=== PATIENT | male | born 1970 | race Caucasian/White ===

== ENCOUNTER 2019-10-24 13:03 | Observation (INO) ==
[2019-10-24] MEDS ORDERED: ASPIRIN 81 MG TAB.CHEW PO ONE (13:16)
[2019-10-24] MEDS: NITROGLYCERIN 0.4 MG/TAB BTL SL PRN ×2 (13:21→13:32)
[2019-10-24 13:31] LABS: Hemoglobin 16.9 gm/dL (13.5-18.0); Mean Cell Volume 91.4 fl (78-100); Mean Corpuscular Hemoglobin 31.5 pg (27-31); Mean Corpuscular Hgb Conc 34.5 g/dl (32-36); Mean Platelet Volume 9.3 fl (8-11.3); Neutrophil % 68.1 % (42-75.0); Platelet Count 255 K/mm3 (150-450); Red Blood Count 5.36 M/mm3 (4.7-6.0); Red Cell Distribution Width 11.9 % (11.5-14.0); White Blood Count 7.4 K/mm3 (4.0-10.5)
[2019-10-24 13:43] LABS: Prothrombin Time (Patient) 10.8 Seconds (9.1-10.7)
[2019-10-24 13:46] LABS: INR 1.09 INR (0.92-1.08); Partial Thrombolplastin Time 25.6 Seconds (24-32)
[2019-10-24 13:51] LABS: ALT 18 U/L (19-67); AST 17 U/L (0-48); Albumin * 4.2 gm/dl (3.4-5.0); Alkaline Phosphatase * 51 U/L (50-170); Anion Gap 16.2 mmol/L (6.8-13.8); BUN/Creatinine Ratio 15.5 (9.0-21.6); Bilirubin, Total 0.5 mg/dL (0.0-1.1); Blood Urea Nitrogen 16 mg/dL (6-23); Ca. Corrected For Albumin 8.3 mg/dL (8.4-10.2); Calcium * 8.8 mg/dL (7.9-10.9); Carbon Dioxide 24.4 mmol/L (24-32.6); Chloride 102 mmol/L (97-106); Glucose * 112 mg/dL (70-110); Potassium 3.6 mmol/L (3.4-4.6); Sodium 139 mmol/L (132-142); Total Protein 7.8 gm/dL (6.2-8.2); Troponin I Less than 0.017 ng/mL (0.00-0.10)
[2019-10-24 14:17] LABS: TSH * 2.889 uIU/mL (0.358-3.74)
[2019-10-24] MEDS ORDERED: NITROGLYCERIN 1 INCH PACKET TD ONE (15:22)
--- NOTE | 2019-10-24 15:44 | ERNOTE ---
Chest Pain/Cardiac HPI Date of Service: 10/24/19 Chief Complaint: Chest Pain Time Seen by Provider: 10/24/19 13:43 Source: patient Exam Limitations: no limitations Immunizations: IMMUNIZATION HX History of Influenza Vaccine Yes Allergies/Adverse Reactions: Allergies No Known Allergies Allergy (Verified 10/24/19 15:40) Home Medications: HOME MEDICATIONS NK 10/24/19 [Last Taken Unknown] Narrative: patient presents to the with chest discomfort and HTN. Was seen at another ER and brought here for ongoing Sx. Here NTG given with relief or Sx. No abdominal pain. Some exertional CP Sx over last few days. No pleuritic pain or acute SOB. No fever or other acute illnesses reported. No calf pain or leg swelling. Timing: gone now Severity/Quality: moderate Location: central Chest Pain Radiation: no radiation Modifying Factors - Improves: Present: nitroglycerin Modifying Factors - Worsens: Present: nothing Nitro Today/Relief: 0.4 mg x 1 Aspirin Treatment Today: provided by ED Associated Symptoms: Absent: headache, diaphoresis, abdominal pain, back pain Prior Chest Pain/Cardiac Workup: Reports: other - stress test 20 years ago Prior Treatment: Denies: recently hospitalized, currently on antibiotics Review of Systems - Review of Systems Constitutional: Absent: fever ENT: Absent: sore throat Respiratory: Present: See HPI Cardiology: Present: See HPI Gastrointestinal/Abdominal: Absent: abdominal pain Genitourinary: Absent: dysuria All Other Systems: All systems neg except as marked Medical History (Last Reviewed 10/24/19 @ 15:43 by Omid Cole MD) Hyperlipidemia (Chronic) Onset Date: Unknown Ankle pain Onset Date: Unknown Anxiety Onset Date: Unknown Club foot Onset Date: Unknown Depression Onset Date: Unknown Surgical History: Surgical History (Last Reviewed 10/24/19 @ 15:43 by Omid Cole MD) History of tonsillectomy Onset Date: ~1985 Family History: Family History (Last Reviewed 10/24/19 @ 15:43 by Omid Cole MD) Mother Alive and well Father Diabetes Brother Alive and well Social History: (Last Reviewed 10/24/19 @ 15:43 by Omid Cole MD) Social History: Marital status: household members: spouse current occupational status: employed 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 Highest education level completed: high school graduate Service: No Tobacco: Smoking Status: Never smoker Alcohol: alcohol intake: current Substance Use: substance use type: does not use Dietary Habits: caffeine: Yes Physical Exam - Physical Exam General Appearance: Present: alert, no apparent distress Head Exam: Present: normal inspection, no evidence of injury Eye Exam: Normal inspection: bilateral, PERRL: bilateral Ears, Nose, Throat: Present: normal ENT inspection Neck: Present: normal inspection Respiratory: Present: no respiratory distress, normal breath sounds, no accessory muscle use, lungs clear Cardiovascular/Chest: Present: regular rate, rhythm, normal peripheral pulses Gastrointestinal/Abdominal: Present: normal bowel sounds, nontender, nondistended, soft Back Exam: Absent: CVA tenderness (R), CVA tenderness (L) Extremity Exam: Present: normal inspection, normal range of motion Neurological Exam: Present: alert, no motor/sensory deficits Skin Exam: Present: normal color, warm/dry Progress - Results and Orders Patient's Lab Results:: I have reviewed the patient's lab results. - Vital Signs Patient's Vital Signs:: I have reviewed the patient's vital signs. Vital Signs: Vital Signs 10/24/19 13:11 10/24/19 13:23 10/24/19 13:33 Temperature 36.4 C Pulse Rate 70 94 72 Respiratory Rate 16 14 Blood Pressure 154/98 H 128/86 O2 Sat by Pulse Oximetry 94 96 10/24/19 13:45 10/24/19 14:15 10/24/19 14:45 Temperature Pulse Rate 83 72 69 Respiratory Rate 21 H 13 14 Blood Pressure 125/85 137/90 H 140/98 H O2 Sat by Pulse Oximetry 94 97 97 10/24/19 15:15 Temperature Pulse Rate 67 Respiratory Rate 26 H Blood Pressure 150/90 H O2 Sat by Pulse Oximetry 96 - EKG EKG #1 EKG: NSR EKG read: Interp. by me EKG Comments: NSR rate 74. Non-specific ST/T wave changes, no STEMI noted. - X-Ray X-Ray #1 X-Ray: chest Interpretation: Interp. by me X-ray Comments: I reviewed official radiology report - Progress/Reassessment Chief Complaint: Chest Pain Progress Note-Subjective: 10/24/19 15:39 Patient had resolution of CP with NTG. Atypical pain but I feel he needs repeat trop and NTG past provided. Will admit obs for cardiac monitoring and rule out. Stress test tomorrow. Patient and family agreeable. HTN treated with NTG Departure Clinical Impression: Chest pain, Hypertension - Departure Disposition: Still a patient Condition: Stable Referrals: Mohan Bond MD [Staff Physician] - Ambulatory Orders: NUC Pharmacological Stress Time Frame: 1 Day, Facility: [facility], Location: Radiology
[2019-10-24] MEDS ORDERED: ACETAMINOPHEN 500 MG TABLET PO PRN (18:49)
[2019-10-24] MEDS: traMADol HCL 50 MG TABLET PO PRN (20:00)
[2019-10-25] MEDS: traMADol HCL 50 MG TABLET PO PRN (07:29)
--- NOTE | 2019-10-25 08:31 | HP ---
Chief Complaint - Chief Complaint Date of Service: 10/25/19 Time of Service: 08:30 Chief Complaint: chest pain History of Present Illness: Fairly healthy 48-year-old male brought into the ER after developing chest pain secondary to elevated blood pressures. Originally seen in [facility] but was unable to get treatment in a timely manner and so was brought to for medicine. EKG here showed slight right bundle branch block but otherwise fairly benign. Initial pressures were 160s over 100s. Pain resolved with nitroglycerin, patient was given aspirin. Blood pressure also improved with nitroglycerin. Initial troponin was negative. Other lab work was negative as well including negative lipase, normal TSH, negative d-dimer. Due to pain being relieved with nitro, patient was placed under observation and brought in to rule out acute coronary syndrome/MD. Second troponin also came back negative. Stress test scheduled for later today. Currently patient is resting comfortably in his bed with his chest pain resolved, blood pressure much better controlled overnight, no questions or concerns. Medical History (Last Reviewed 10/24/19 @ 15:43 by Omid Cole MD) Hyperlipidemia (Chronic) Onset Date: Unknown Ankle pain Onset Date: Unknown Anxiety Onset Date: Unknown Club foot Onset Date: Unknown Depression Onset Date: Unknown Surgical History: Surgical History (Last Reviewed 10/24/19 @ 15:43 by Omid Cole MD) History of tonsillectomy Onset Date: ~1985 Family History: Family History (Last Reviewed 10/24/19 @ 15:43 by Omid Cole MD) Mother Alive and well Father Diabetes Brother Alive and well Social History: (Last Reviewed 10/24/19 @ 15:43 by Omid Cole MD) Social History: Marital status: household members: spouse current occupational status: employed 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 Absent: Edema, Palpitations Abdominal: Present: Nausea. Absent: Vomiting Genitourinary: Present: No Symptoms Reported Musculoskeletal: Present: No Symptoms Reported Neurological: Present: No Symptoms Reported Skin: Present: No Symptoms Reported Endocrine: Present: No Symptoms Reported Immunizations: IMMUNIZATION HX History of Influenza Vaccine Yes Allergies/Adverse Reactions: Allergies Allergy/AdvReac Type Severity Reaction Status Date / Time No Known Allergies Allergy Verified 10/24/19 15:40 Home Medications: HOME MEDICATIONS NK 10/24/19 [Last Taken Unknown] Exam - Exam Vital Signs: Vital Signs - Last Taken Temp 36.6 C 10/25/19 07:14 Pulse 77 10/25/19 07:14 Resp 18 10/25/19 07:14 BP 128/76 10/25/19 07:14 Pulse Ox 94 10/25/19 07:14 Constitutional: Present: Alert, Oriented x3, Cooperative, Well developed ENT Exam: Present: hearing grossly normal. Absent: nasal congestion, nasal drainage Eye Exam: bilateral eye: normal inspection, EOMI Neck: Present: non-tender, supple. Absent: thyromegaly Respiratory: Present: lungs clear, normal breath sounds, no respiratory distress Cardiovascular/Chest: Present: normal peripheral pulses, regular rate, rhythm, no murmur. Absent: edema Peripheral Pulses: carotid (R): 2+, carotid (L): 2+, dorsalis-pedis (R): 2+, dorsalis-pedis (L): 2+ Abdomen: Present: Normal bowel sounds, soft, nontender, nondistended /Rectal: Present: Exam deferred Skin Exam: Present: normal color, warm/dry Appearance: Present: appropriate appearance, appropriate insight Eye contact: Present: cooperative, good eye contact Thoughts: Present: normal thought pattern, normal mood /affect Diagnostic Studies: Abnormal Lab Results 10/24/19 10/24/19 10/24/19 Range/Units 13:25 13:25 13:25 MCH 31.5 H (27-31) pg PT 10.8 H (9.1-10.7) Seconds INR (Anticoag Therapy) 1.09 H (0.92-1.08) INR Anion Gap 16.2 H (6.8-13.8) mmol/L Random Glucose 112 H (70-110) mg/dL Calcium Adj for Albumin 8.3 L (8.4-10.2) mg/dL ALT 18 L (19-67) U/L Laboratory Results WBC 7.4 K/mm3 (4.0-10.5) 10/24/19 13:25 RBC 5.36 M/mm3 (4.7-6.0) 10/24/19 13:25 Hgb 16.9 gm/dL (13.5-18.0) 10/24/19 13:25 Hct 49.0 % (42.0-52.0) 10/24/19 13:25 MCV 91.4 fl (78-100) 10/24/19 13:25 MCH 31.5 pg (27-31) H 10/24/19 13:25 MCHC 34.5 g/dl (32-36) 10/24/19 13:25 RDW 11.9 % (11.5-14.0) 10/24/19 13:25 Plt Count 255 K/mm3 (150-450) 10/24/19 13:25 MPV 9.3 fl (8-11.3) 10/24/19 13:25 Immature Gran % (Auto) 0.10 % (0.001-0.429) 10/24/19 13:25 Immature Gran # (Auto) 0.01 K/mm3 (0.000-0.0310) 10/24/19 13:25 Neutrophils % 68.1 % (42-75.0) 10/24/19 13:25 Lymphocytes % 21.7 % (20-51) 10/24/19 13:25 Monocytes % 7.9 % (0.0-9) 10/24/19 13:25 Eosinophils % 1.4 % (0.0-3.0) 10/24/19 13:25 Basophils % 0.8 % (0.0-1.0) 10/24/19 13:25 Nucleated RBC % 0.0 k/mm3 (0-1) 10/24/19 13:25 Neutrophils # 5.0 K/mm3 (1.3-6.0) 10/24/19 13:25 Lymphocytes # 1.60 k/mm3 (1.5-3.5) 10/24/19 13:25 Monocytes # 0.6 k/mm3 (0.0-1.0) 10/24/19 13:25 Eosinophils # 0.1 k/mm3 (0.0-0.7) 10/24/19 13:25 Absolute Basophils 0.1 k/mm3 (0.0-0.1) 10/24/19 13:25 PT 10.8 Seconds (9.1-10.7) H 10/24/19 13:25 INR (Anticoag Therapy) 1.09 INR (0.92-1.08) H 10/24/19 13:25 PTT ([place]) 25.6 Seconds (24-32) 10/24/19 13:25 D-Dimer 0.21 ug/mL (0.19-0.49) 10/24/19 Unknown Sodium 139 mmol/L (132-142) 10/24/19 13:25 Plasma Sodium 139 mmol/L (130-142) 10/24/19 13:25 Potassium 3.6 mmol/L (3.4-4.6) 10/24/19 13:25 Chloride 102 mmol/L (97-106) 10/24/19 13:25 Carbon Dioxide 24.4 mmol/L (24-32.6) 10/24/19 13:25 Anion Gap 16.2 mmol/L (6.8-13.8) H 10/24/19 13:25 BUN 16 mg/dL (6-23) 10/24/19 13:25 Creatinine 1.03 mg/dL (0.4-1.4) 10/24/19 13:25 Est GFR (Non-Af Amer) 82 mL/min (60-130) 10/24/19 13:25 BUN/Creatinine Ratio 15.5 (9.0-21.6) 10/24/19 13:25 Random Glucose 112 mg/dL (70-110) H 10/24/19 13:25 Calcium 8.8 mg/dL (7.9-10.9) 10/24/19 13:25 Calcium Adj for Albumin 8.3 mg/dL (8.4-10.2) L 10/24/19 13:25 Total Bilirubin 0.5 mg/dL (0.0-1.1) 10/24/19 13:25 AST 17 U/L (0-48) 10/24/19 13:25 ALT 18 U/L (19-67) L 10/24/19 13:25 Alkaline Phosphatase 51 U/L (50-170) 10/24/19 13:25 Troponin I Less than 0.017 ng/mL (0.00-0.10) 10/24/19 18:05 Total Protein 7.8 gm/dL (6.2-8.2) 10/24/19 13:25 Albumin 4.2 gm/dl (3.4-5.0) 10/24/19 13:25 Lipase 161 U/L (73-393) 10/24/19 Unknown TSH 2.889 uIU/mL (0.358-3.74) 10/24/19 Unknown Assessment/Plan - Narrative Narrative: 48-year-old male admitted for observation overnight due to chest pain. Work-up negative up-to-date. If pain is caused by myocardial ischemia than it is unst able. Blood pressure has been high but returned to a reasonable level with Nitropaste. Patient to have a nuclear stress test later this afternoon. Lab work-up negative, negative troponins. Negative d-dimer. Other lab work within order. If stress test is negative than likely his pain with has been caused by stress and anxiety which we can discuss following the completion of his work-up. If negative the patient will be discharged home today with instruction to follow-up with his PCP in the next week or 2 to discuss possible stress management. His vital signs have been stable otherwise, he has been afebrile. Regular diet ordered. SCDs to be worn while in bed. No pharmacological DVT prophylaxis warranted at this time. Nurse will call with questions or concerns. - Assessment/Plan (1) Chest pain Problem: Acute Qualifiers: Chest pain type: unspecified Qualified Code(s): R07.9 - Chest pain, unspecified (2) Hypertension Problem: Acute
--- NOTE | 2019-10-25 14:06 | DS ---
(1) Chest pain Problem: Resolved Qualifiers: Chest pain type: unspecified Qualified Code(s): R07.9 - Chest pain, unspecified (2) Hypertension Problem: Resolved Date of Discharge:: 10/25/19 Hospital Course: 48-year-old male placed in observation for acute chest pain, radiating up into his neck as well as developing numbness/tingling in his fingers bilaterally. Symptoms resolved with nitro. Work up negative while here in the hospital. Lab work all within normal limits including negative troponins and negative d-dimer. Vital signs all stable and back to an acceptable range without treatment. Nuclear stress test did not show any wall motion abnormality of his heart, normal ejection fraction seen. Pain appears to be stress/anxiety in nature and recommend patient follow-up with his PCP to discuss how to manage this better in order to keep this from happening. Patient's blood pressure also need to be monitored in order to make sure he does not become symptomatic again. If blood pressure remains high, then low-dose lisinopril and baby aspirin recommended. Patient encouraged to exercise and lose a little weight in order to help keep his blood pressure well controlled without pharmacologic's. Patient to be discharged with regular diet. He is not currently on any medications. Procedures Performed: see notes below - Pharmacological nuclear stress test Results and Findings: Lab Pending Results 10/24/19 13:25: WBC 7.4, RBC 5.36, Hgb 16.9, Hct 49.0, MCV 91.4, MCH 31.5 H, MCHC 34.5, RDW 11.9, Plt Count 255, MPV 9.3, Immature Gran % (Auto) 0.10, Immature Gran # (Auto) 0.01, Neutrophils % 68.1, Lymphocytes % 21.7, Monocytes % 7.9, Eosinophils % 1.4, Basophils % 0.8, Nucleated RBC % 0.0, Neutrophils # 5.0, Lymphocytes # 1.60, Monocytes # 0.6, Eosinophils # 0.1, Absolute Basophils 0.1 10/24/19 13:25: PT 10.8 H, INR (Anticoag Therapy) 1.09 H, PTT ([place]) 25.6 10/24/19 13:25: Sodium 139, Plasma Sodium 139, Potassium 3.6, Chloride 102, Carbon Dioxide 24.4, Anion Gap 16.2 H, BUN 16, Creatinine 1.03, Est GFR (Non-Af Amer) 82, BUN/Creatinine Ratio 15.5, Random Glucose 112 H, Calcium 8.8, Calcium Adj for Albumin 8.3 L, Total Bilirubin 0.5, AST 17, ALT 18 L, Alkaline Phosphatase 51, Troponin I Less than 0.017, Total Protein 7.8, Albumin 4.2 10/24/19 18:05: Troponin I Less than 0.017 10/24/19 : Lipase 161, TSH 2.889 10/24/19 : D-Dimer 0.21 Discharge Location: Home Disposition: Home self-care Condition: Stable Discharge Activity: Activity as tolerated Discharge Diet: General/regular food Referrals: Mohan Bond MD [Staff Physician] - Complete Home Medications List: Complete Home Medication List: NK 10/24/19
[2019-10-25 14:15] VITALS: BP 130/72
== END 2019-10-25 14:48 | disposition home or self-care (01) ==
LOC: ER 13:03 → MS 13:03
PROVIDERS: ADMIT Family Medicine; ATTEND Family Medicine
DX: I10 Essential (primary) hypertension; R07.9 Chest pain, unspecified
CPT/HCPCS: 36415; 71020; 71046; 78452; 80053; 83690; 84443; 84484; 85025; 85379; 85610; 85730; 93005; 93017; 99285; A9502; G0378